=== PATIENT | male | born 1970 | race Caucasian/White ===

== ENCOUNTER 2016-04-21 15:13 | Emergency (ER) | payer OTHER ==
[2016-04-21] MEDS ORDERED: KETOROLAC TROMETHAMINE 60 MG/2 ML VIAL ONE (15:49)
== END 2016-04-21 16:13 | disposition home or self-care (01) ==
LOC: ED 15:13
DX: M54.5 Low back pain (principal); F17.220 Nicotine dependence, chewing tobacco, uncomplicated
CPT/HCPCS: 99283 ×2; 96372; J1885